=== PATIENT | female | born 1975 ===

== ENCOUNTER 2025-01-27 13:53 | Outpatient (REF) | payer BC, SELFPAY ==
--- NOTE | 2025-01-27 13:00 | PAPFT_PTH ---
PATIENT: Nayana Child LOC: [place] U#:[id number] AGE/SX: 49/F ROOM: RE01/27/[address]: Tri Agarwal NP : 1975 BED: DIS: 01/27/2025 SPEC #: [id number] RECD: 01/27/25 18:17 STATUS: DARCY AYOUB #: [id number] NATALIE: 01/27/25 13:[address]: Tri Agarwal NP DEPT: [facility] Cytology RECD BY: Ama Waite ENTERED: 01/27/25 18:18 SP TYPE: PAPFT OTHR DR: Dorothy Lucas Tissues: 1 - CX/ENDOCX FOR PAP SMEARS Procedures: PAP THIN PREP/[facility] Screening HPV DNA PROBE Comments: [id number] (HPV 16 & 18/45)
== END 2025-01-27 13:54 | disposition home or self-care (01) ==
LOC: LBN 13:53
PROVIDERS: PCP Internal Medicine; Visit Provider Nurse Practitioner Women's Health
DX: Z11.51 Encounter for screening for human papillomavirus (HPV) (principal); Z01.419 Encounter for gynecological examination (general) (routine) without abnormal findings; R87.622 Low grade squamous intraepithelial lesion on cytologic smear of vagina (LGSIL)
CPT/HCPCS: 88142; 87624